=== PATIENT | male | born 1970 | race Caucasian/White ===

== ENCOUNTER 2016-07-28 07:04 | Observation (INO) | payer OTHER ==
[2016-07-28 08:11] LABS: Hematocrit 46.7 % (42.0-52.0); Hemoglobin 16.6 gm/dL (13.5-18.0); Mean Cell Volume 87.1 fl (78-100); Mean Corpuscular Hgb Conc 35.5 g/dl (32-36); Mean Platelet Volume 10.9 fl (6.0-9.5); Neutrophil % 69.7 % (42-75.0); Platelet Count 232 K/mm3 (150-450); Red Blood Count 5.36 M/mm3 (4.7-6.0); Red Cell Distribution Width 12.4 % (11.5-14.0); White Blood Count 7.1 K/mm3 (4.0-10.5)
[2016-07-28 08:22] LABS: Prothrombin Time (Patient) 10.6 Seconds (9.4-11.4)
[2016-07-28 08:23] LABS: INR 1.02 INR (0.90-1.10); Partial Thrombolplastin Time 23.7 Seconds (24-32)
[2016-07-28 08:31] LABS: ALT 61 U/L (19-67); AST 25 U/L (0-48); Albumin * 4.1 gm/dl (3.4-5.0); Alkaline Phosphatase * 71 U/L (50-170); Anion Gap 10.1 mmol/L (6.8-13.8); BUN/Creatinine Ratio 14.8 (9.0-21.6); Bilirubin, Total 0.6 mg/dL (0.0-1.1); Blood Urea Nitrogen 22 mg/dL (6-23); Ca. Corrected For Albumin 9.2 mg/dL (8.4-10.2); Calcium * 9.6 mg/dL (7.9-10.9); Carbon Dioxide 33.5 mmol/L (24-32.6); Chloride 102 mmol/L (97-106); Glucose * 132 mg/dL (70-110); Potassium 3.6 mmol/L (3.4-4.6); Sodium 142 mmol/L (132-142); Total Protein 7.7 gm/dL (6.2-8.2)
[2016-07-28 08:32] LABS: Troponin I Less than 0.017 ng/ml (0.00-0.10)
[2016-07-28] MEDS ORDERED: MORPHINE SULFATE 2 MG/ML DISP.SYRIN IV ONE (08:33)
[2016-07-28] MEDS ORDERED: ASPIRIN 81 MG TAB.CHEW PO ONE (08:43)
[2016-07-28] MEDS ORDERED: ASPIRIN 81 MG TAB.CHEW ONE (08:55)
--- NOTE | 2016-07-28 08:59 | ERNOTE ---
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 LATER HE HAD A SENSATION OPF "ACHING" FROM THE TOP OF HIS HEAD TO THE UPPER ABD, HE SAYS "MORE ON THE LEFT SIDE THAN THE RIGHT". HE SAYS THIS LASTED ABOUT 1 HOUR. HE IS NOT ON ANY MEDS THOUGH HAS BEEN PRESCRIBED PRISTIQ AND A BP MED IN THE PAST BUT THE BP MED ALWAY MADE HIS BP GO TO LOW SO HE DOES NOT TAKE IT. HE RATED THIS ACHING AT A 4/10. HE SAYS HE NOTED A LITTLE OF THIS ACHING LAST NIGHT HE WS DRIVING UP HERE FROM [facility] TO WORK. HE ALSO RELATES A SIMILAR ACHING ABOUT A WEEK AGO , ALSO WHILE DRIVING. HE DOES DIP TOBACCO, NO DRUGS OR ETOH. THERE IS NO PHX OF CAD THOUGH THERE IS DM. HE HAS NONE OF THIS ACHING SINCE ADMITTED TO THE ER. HE DOES ADMIT TO NOT GETTING MUCH SLEEP LATELY WITH THE ACTIVITY. Timing: gone now Severity/Quality: aching Review of Systems - Review of Systems Constitutional: Present: See HPI EYE: Present: no symptoms reported ENT: Present: no symptoms reported Respiratory: Present: no symptoms reported Cardiology: Present: See HPI, other - ACHING Gastrointestinal/Abdominal: Present: See HPI, nausea Genitourinary: Present: no symptoms reported Musculoskeletal: Present: no symptoms reported Skin: Present: no symptoms reported Neurological: Present: no symptoms reported Endocrine: Present: no symptoms reported Hematologic/Lymphatic: Present: no symptoms reported Psych: Present: no symptoms reported All Other Systems: All systems neg except as marked - Patient's Past Medical History Patient History - Medical: No pertinent hx Patient History - Cardiac/Respiratory: Hypertension Patient History - Cancer: No Hx of Cancer Patient History - Surgical Procedures: No surgical history Patient History - Other: None - Social History Living Situations: home Psych History: No pertinent hx Smoking Status: Current every day smoker Have you smoked in the past 12 months: Yes Alcohol Use: none Drug Use: none - Immunizations Immunizations Up to Date: No History of Influenza Vaccine: No Physical Exam - Physical Exam General Appearance: Present: wd/wn, alert, no apparent distress Respiratory: Present: no respiratory distress, normal breath sounds, no accessory muscle use, chest nontender, lungs clear Cardiovascular/Chest: Present: regular rate, rhythm, no murmur, normal peripheral pulses Gastrointestinal/Abdominal: Present: normal bowel sounds, nontender, nondistended, soft, no organomegaly Neurological Exam: Present: alert, oriented, normal mood/affect Skin Exam: Present: normal color, warm/dry ED Progress - Results and Orders Patient's Lab Results:: I have reviewed the patient's lab results. Results and Orders: ALL WNL EXCEPT GLU 143 - Vital Signs Patient's Vital Signs:: I have reviewed the patient's vital signs. Vital Signs: Vital Signs 07/28/16 07:43 Temperature 36.3 C L Pulse Rate 82 Respiratory 20 Rate Blood Pressure 103/64 O2 Sat by Pulse 97 Oximetry - EKG EKG: NSR EKG read: Interp. by me - X-Ray X-Ray #1 X-Ray: chest X-ray Comments: [facility] PATIENT RADIOLOGY STUDY REPORT Patient Patient Name:MILTON HALEY Date: 1970 Sex: M Order Number: [id number] Unique Exam ID: [id number] Exam Requested: CXRPALAT - Chest PA Lateral * Date Scheduled: Study Priority: Requesting Service: Requesting Physician: Evans Chavez Reason for Exam: Chest Pain Radiological Report : Exam Date: 07/28/2016 08:12 Ordering Physician: Evans Chavez HISTORY: Chest Pain Additional history from technologist: Weakness and feeling achy since last . TECHNIQUE: PA and lateral views of the chest were obtained. 3 images. COMPARISONS: None Available FINDINGS: Chest PA Lateral * Normal lung volumes. No consolidation or mass. No pneumothorax or pleural fluid collections. Cardiac and mediastinal silhouettes are normal. Trachea is in normal position. Bones show degenerative changes of the spine. IMPRESSION: 1. No focal acute cardiopulmonary finding. Electronically signed by Tami Yee M.D.. Approved by: Approval Date: 07-28-2016 Approval Time: 08:29 AM THIS REPORT WAS RECEIVED FROM THE [employer] SYSTEM - Progress/Reassessment Chief Complaint: Chest Pain Progress:: Improved - Transfer of Care Physician Sign Out: Evans Chavez Receiving Physician: Carmen Gaitan Pending Results: Labs - WILL NEED REPEAT TROPONIN Expected Disposition: Discharge Departure - Departure Clinical Impression: Chest pain of unknown etiology Disposition: [facility] Condition: Fair <Carmen Gaitan - Last Filed: 07/28/16 09:25> Chest Pain/Cardiac HPI Immunizations: IMMUNIZATION HX Immunizations Up to Date No History of Influenza Vaccine No ED Progress - Vital Signs Vital Signs: Vital Signs 07/28/16 07:43 Temperature 36.3 C L Pulse Rate 82 Respiratory 20 Rate Blood Pressure 103/64 O2 Sat by Pulse 97 Oximetry Plan - Plan Plan: I first saw this patient after the patient had already been in this emergency room seen examined blood tests ordered and treated by the previous provider. When I saw the patient patient did not have any chest pains. The history is that the patient had chest pains at 7 AM today in the substernal region radiating to his left shoulder he subsequently became nauseated and dizzy and decided to present to the emergency room. Patient did not vomit. Patient has had similar episodes like this in the past that have subsequently spontaneously resolved. Continues to be pain-free in the ER during my shift. RESULTS are back and it appears that the EKG is normal sinus rhythm and a first set of enzymes are normal. Artem had a discussion with the patient and reports the standard of care. In light of the fact that he has hypertension, age over 38, history of chest pains, and has not seen a physician for a long time, I do believe this patient has had significant chest pains that warrant admission to the observation unit at this hospital.
[2016-07-28] MEDS ORDERED: ACETAMINOPHEN 325 MG TABLET PO PRN (13:14)
[2016-07-28] MEDS: APIXABAN 2.5 MG TABLET PO SCH ×2 (15:31→20:08)
--- NOTE | 2016-07-28 19:14 | HP ---
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 LATER HE HAD A SENSATION OF "ACHING" FROM THE TOP OF HIS HEAD TO THE UPPER ABD, HE SAYS "MORE ON THE LEFT SIDE THAN THE RIGHT". HE SAYS THIS LASTED ABOUT 1 HOUR. HE IS NOT ON ANY MEDS THOUGH HAS BEEN PRESCRIBED PRISTIQ AND A BP MED IN THE PAST BUT THE BP MED ALWAY MADE HIS BP GO TO LOW SO HE DOES NOT TAKE IT. HE RATED THIS ACHING AT A 4/10. HE SAYS HE NOTED A LITTLE OF THIS ACHING LAST NIGHT HE WS DRIVING UP HERE FROM [facility] TO WORK. HE ALSO RELATES A SIMILAR ACHING ABOUT A WEEK AGO , ALSO WHILE DRIVING. HE DOES DIP TOBACCO, NO DRUGS OR ETOH. THERE IS NO PHX OF CAD THOUGH THERE IS DM. HE HAS NONE OF THIS ACHING SINCE ADMITTED TO THE ER. HE DOES ADMIT TO NOT GETTING MUCH SLEEP LATELY. - Patient's Past Medical History Patient History - Medical: No pertinent hx Patient History - Cardiac/Respiratory: Hypertension Patient History - Cancer: No Hx of Cancer Patient History - Surgical Procedures: No surgical history Patient History - Other: None - Family History Mother Family History - Medical: Diabetes Type 2 Family History - Cardiac/Respiratory: Hypertension Father Family History - Medical: No pertinent hx - Social History Living Situations: home Psych History: No pertinent hx Smoking Status: Former smoker Have you smoked in the past 12 months: No Do you dip or chew tobacco: Yes Alcohol Use: none Drug Use: none - Immunizations Immunizations Up to Date: No History of Influenza Vaccine: No Review Of Systems (GEN) - Review of Systems Generalized/Overall Review: Present: No Symptoms Reported EENTM: Present: No Symptoms Reported Respiratory: Present: No Symptoms Reported Cardiac: Present: Chest Pain Abdominal: Present: No Symptoms Reported Genitourinary: Present: No Symptoms Reported Musculoskeletal: Present: No Symptoms Reported Neurological: Present: No Symptoms Reported Skin: Present: No Symptoms Reported Endocrine: Present: No Symptoms Reported Misc: All systems neg except as marked Allergies/Adverse Reactions: Allergies Allergy/AdvReac Type Severity Reaction Status Date / Time No Known Allergies Allergy Verified 07/28/16 10:23 Home Medications: HOME MEDICATIONS NK [No Home Medication] 07/28/16 [Last Taken Unknown] Exam - Exam Vital Signs: Vital Signs - Last Taken Selected Entries 07/28/16 18:23 Temperature 36.8 C Temperature Oral Source Pulse Rate 59 L Respiratory 16 Rate Blood Pressure 114/71 Blood Pressure Supine Position O2 Sat by Pulse 95 Oximetry Oxygen Delivery Room Air Method Constitutional: Present: Alert, Oriented x3, Cooperative, Well developed, Well nourished ENT Exam: Present: normal ENT inspection, pharynx normal Eye Exam: bilateral eye: normal inspection, PERRL, EOMI Neck: Present: normal inspection Back Exam: Present: normal inspection Respiratory: Present: lungs clear, no respiratory distress Cardiovascular/Chest: Present: regular rate, rhythm, no murmur Abdomen: Present: Normal bowel sounds, soft, nontender, nondistended, no rebound tenderness, no hepatospenomegaly, no masses Extremity: Present: normal inspection, no pedal edema Skin Exam: Present: normal color, warm/dry, no cyanosis Neurologic: Present: alert, oriented x 3 Appearance: Present: appropriate appearance, neat Eye contact: Present: cooperative, good eye contact Thoughts: Present: normal thought pattern Diagnostic Studies: Laboratory Results WBC 7.1 K/mm3 (4.0-10.5) 07/28/16 07:56 RBC 5.36 M/mm3 (4.7-6.0) 07/28/16 07:56 Hgb 16.6 gm/dL (13.5-18.0) 07/28/16 07:56 Hct 46.7 % (42.0-52.0) 07/28/16 07:56 MCV 87.1 fl (78-100) 07/28/16 07:56 MCH 31.0 pg (27-31) 07/28/16 07:56 MCHC 35.5 g/dl (32-36) 07/28/16 07:56 RDW 12.4 % (11.5-14.0) 07/28/16 07:56 Plt Count 232 K/mm3 (150-450) 07/28/16 07:56 MPV 10.9 fl (6.0-9.5) H 07/28/16 07:56 Immature Gran % (Auto) 0.30 % (0.001-0.429) 07/28/16 07:56 Immature Gran # (Auto) 0.02 K/mm3 (0.000-0.0310) 07/28/16 07:56 Neutrophils % 69.7 % (42-75.0) 07/28/16 07:56 Lymphocytes % 20.6 % (20-51) 07/28/16 07:56 Monocytes % 7.5 % (0.0-9) 07/28/16 07:56 Eosinophils % 1.3 % (0.0-3.0) 07/28/16 07:56 Basophils % 0.6 % (0.0-1.0) 07/28/16 07:56 Nucleated RBC % 0.0 k/mm3 (0-1) 07/28/16 07:56 Neutrophils # 5.0 K/mm3 (1.3-6.0) 07/28/16 07:56 Lymphocytes # 1.5 k/mm3 (1.5-3.5) 07/28/16 07:56 Monocytes # 0.5 k/mm3 (0.0-1.0) 07/28/16 07:56 Eosinophils # 0.1 k/mm3 (0.0-0.7) 07/28/16 07:56 Absolute Basophils 0.0 k/mm3 (0.0-0.1) 07/28/16 07:56 PT 10.6 Seconds (9.4-11.4) 07/28/16 08:00 INR (Anticoag Therapy) 1.02 INR (0.90-1.10) 07/28/16 08:00 PTT ([place]) 23.7 Seconds (24-32) L 07/28/16 08:00 Sodium 142 mmol/L (132-142) 07/28/16 08:00 Plasma Sodium 143 mmol/L (130-142) H 07/28/16 08:00 Potassium 3.6 mmol/L (3.4-4.6) 07/28/16 08:00 Chloride 102 mmol/L (97-106) 07/28/16 08:00 Carbon Dioxide 33.5 mmol/L (24-32.6) H 07/28/16 08:00 Anion Gap 10.1 mmol/L (6.8-13.8) 07/28/16 08:00 BUN 22 mg/dL (6-23) 07/28/16 08:00 Creatinine 1.49 mg/dL (0.4-1.4) H 07/28/16 08:00 Est GFR (Non-Af Amer) 54 mL/min (60-130) L 07/28/16 08:00 BUN/Creatinine Ratio 14.8 (9.0-21.6) 07/28/16 08:00 Random Glucose 132 mg/dL (70-110) H 07/28/16 08:00 Calcium 9.6 mg/dL (7.9-10.9) 07/28/16 08:00 Calcium Adj for Albumin 9.2 mg/dL (8.4-10.2) 07/28/16 08:00 Total Bilirubin 0.6 mg/dL (0.0-1.1) 07/28/16 08:00 AST 25 U/L (0-48) 07/28/16 08:00 ALT 61 U/L (19-67) 07/28/16 08:00 Alkaline Phosphatase 71 U/L (50-170) 07/28/16 08:00 CK-MB (CK-2) Less than 0.5 ng/mL (0.0-9.0) 07/28/16 08:00 Troponin I Less than 0.017 ng/ml (0.00-0.10) 07/28/16 12:00 Total Protein 7.7 gm/dL (6.2-8.2) 07/28/16 08:00 Albumin 4.1 gm/dl (3.4-5.0) 07/28/16 08:00 Assessment/Plan - Narrative Narrative: serial ekgs and troponins. stress test if rules out.
[2016-07-28] MEDS ORDERED: ATORVASTATIN CALCIUM 40 MG TABLET PO STA (21:31)
[2016-07-28] MEDS ORDERED: ROSUVASTATIN CALCIUM 10 MG TABLET PO ONE (22:45)
--- NOTE | 2016-07-29 07:57 | PN ---
Subjective - Date and Time Seen Date: 07/29/16 Time: 07:00 Subjective Narrative: No symptoms. Vitals stable. Brief episode of a fib yesterday. No prior. Objective - Review of Systems Generalized/Overall Review: Reports: No Symptoms Reported EENTM: Reports: No Symptoms Reported Respiratory: Reports: No Symptoms Reported Cardiac: Reports: No Symptoms Reported Abdominal: Reports: No Symptoms Reported Genitourinary Symptoms: Reports: No Symptoms Reported Musculoskeletal Complaints: Reports: No Symptoms Reported Neurological: Reports: No Symptoms Reported Skin: Reports: No Symptoms Reported Endocrine: Reports: No Symptoms Reported Misc: All systems neg except as marked - Vitals Vitals: Last Vital Signs Selected Entries 07/29/16 02:26 Temperature 36.3 C L Pulse Rate 54 L Respiratory 18 Rate Respiratory Normal Depth Respiratory Normal Effort Non-Labored Blood Pressure 116/62 Blood Pressure Supine Position O2 Sat by Pulse 98 Oximetry Oxygen Delivery Room Air Method - Abnormal Lab Findings Abnormal Lab Findings: Abnormal Lab Results 07/29/16 Range/Units 05:25 HDL Cholesterol 34 L (40-60) mg/dL - Exam Constitutional: Present: Alert, Oriented x3, Cooperative, Well developed, Well nourished, No distress ENT Exam: Present: normal ENT inspection, hearing grossly normal Neck: Present: normal inspection Respiratory: Present: lungs clear, normal breath sounds, no respiratory distress Cardiovascular/Chest: Present: regular rate, rhythm, no murmur Abdomen: Present: Normal bowel sounds, soft, nontender, nondistended, no rebound tenderness, no hepatospenomegaly, no masses Extremity: Present: normal inspection, no pedal edema Skin Exam: Present: normal color, warm/dry, no cyanosis Neurologic: Present: alert, oriented x 3 Appearance: Present: appropriate appearance, appropriate insight, neat, no memory impairment Eye contact: Present: cooperative, good eye contact, normal speech Thoughts: Present: normal thought pattern Assessment/Plan Plan Narrative: Echo, stress test, cardiology consult. - Problems/Diagnosis (1) Atrial fibrillation Problem: Acute Qualifiers: Atrial fibrillation type: paroxysmal Qualified Code(s): I48.0 - Paroxysmal atrial fibrillation (2) Tobacco chew use Problem: Acute (3) Chest pain of unknown etiology Problem: Chronic
[2016-07-29 09:55] VITALS: BP 117/88
[2016-07-29] MEDS: APIXABAN 2.5 MG TABLET PO SCH (10:25)
--- NOTE | 2016-07-29 12:44 | DS ---
(1) Atrial fibrillation Problem: Acute Qualifiers: Atrial fibrillation type: paroxysmal Qualified Code(s): I48.0 - Paroxysmal atrial fibrillation (2) Tobacco chew use Problem: Acute (3) Chest pain of unknown etiology Problem: Chronic Description of Stay: Chest pain free since admission. Brief episodes of new a fib the evening of admission. No senior medical billing specialist available today. Will finish workup as outpatient as outpatient. Treadmill stress test normal today. Procedures Performed: none Discharge Disposition: Home self care Disposition: Home self-care Condition: Good Discharge Activity: Activity as tolerated Discharge Diet: General/regular food Problem Oriented Discharge Instructions to Patient/Family: Nonspecific Chest Pain, [id number], Atrial Fibrillation, [id number], Tobacco Use Disorder Additional Patient Instructions (free text): Please stop using tobacco. Outpatient Echo test. See the senior medical billing specialist after the Echo completed. Prescriptions (Any new or edited meds): Atorvastatin Calcium [Lipitor] 40 mg PO HS #30 tablet Metoprolol Tartrate [Lopressor] 25 mg PO BID #60 tab Complete Home Medications List: Complete Home Medication List: Atorvastatin Calcium [Lipitor] 40 mg PO HS #30 tablet 07/29/16 Metoprolol Tartrate [Lopressor] 25 mg PO BID #60 tab 07/29/16
[2016-07-29] MEDS ORDERED: ROSUVASTATIN CALCIUM 10 MG TABLET PO SCH (21:00)
== END 2016-07-29 13:40 | disposition home or self-care (01) ==
LOC: ER 07:04 → MS 09:30
PROVIDERS: ADMIT Allergy & Immunology; ATTEND Allergy & Immunology
DX: I48.0 Paroxysmal atrial fibrillation (principal); R07.9 Chest pain, unspecified; I10 Essential (primary) hypertension; F17.220 Nicotine dependence, chewing tobacco, uncomplicated
CPT/HCPCS: 36415; 71020; 80053; 80061; 82553; 84484; 85025; 85610; 85730; 93005; 93017; 99284; G0378